=== PATIENT | female | born 1985 | race Caucasian/White ===

== ENCOUNTER 2017-01-26 14:18 | Emergency (ER) | payer OTHER ==
[2017-01-26 14:34] VITALS: BMI 21.2
[2017-01-26 15:10] VITALS: TEMP 98
[2017-01-26] MEDS ORDERED: Sodium Chloride 0.9% 1,000 ML IV ONE (15:17)
[2017-01-26] MEDS ORDERED: Sodium Chloride 0.9% 1,000 ML ONE (15:33)
[2017-01-26 15:45] LABS: BASO % 0.1 % (0.0-2.0); EOS % 0.2 % (0.0-4.0); HEMATOCRIT 33.2 % (34.0-47.0); LYMPH # 1.5 K/uL (1.0-4.3); LYMPH % 21.1 % (20.0-40.0); MEAN CELL VOLUME 83.1 fL (81.0-99.0); MEAN CORPUSCULAR HEMOGLOBIN 28.1 pg (27.0-31.0); MEAN CORPUSCULAR HGB CONC 33.8 g/dL (33.0-37.0); MEAN PLATELET VOLUME 8.7 fL (7.2-11.7); MONO # 0.5 K/uL (0.0-0.8); MONO % 7.4 % (0.0-10.0); NRBC % 0.1 % (0.0-2.0); RBC URINE 1 /hpf (0-3); RED CELL DISTRIBUTION WIDTH 16.3 % (11.5-14.5); URINE BACTERIA RARE (<OCC); URINE BILIRUBIN NEGATIVE (NEGATIVE); URINE BLOOD NEGATIVE (NEGATIVE); URINE COLOR Straw (YELLOW); URINE GLUCOSE (UA) NORMAL (Normal); URINE KETONE NEGATIVE (NEGATIVE); URINE LEUKOCYTE ESTERASE TRACE Leu/uL (Negative); URINE PROTEIN NEGATIVE (NEGATIVE); URINE UROBILINOGEN NORMAL mg/dL (0.2-1.0); WBC URINE 3 /hpf (0-5); WHITE BLOOD COUNT 7.1 K/uL (4.8-10.8)
[2017-01-26 15:53] LABS: CHLORIDE 100 mmol/L (98-107); POTASSIUM 3.4 mmol/L (3.6-5.2); SODIUM 134 mmol/L (132-148)
[2017-01-26 15:56] LABS: ALB/GLOB RATIO 1.2 (1.0-2.1); ALKALINE PHOSPHATASE 50 U/L (38-126); ALT/SGPT 23 U/L (9-52); AST/SGOT 20 U/L (14-36); BILIRUBIN,TOTAL 0.4 mg/dL (0.2-1.3); BLOOD UREA NITROGEN 8 mg/dL (7-17); CALCIUM 8.7 mg/dl (8.6-10.4); CARBON DIOXIDE 23 mmol/L (22-30); GFR AFRICAN-AMERICAN > 60; GLUCOSE,RANDOM 74 mg/dL (65-105); TOTAL PROTEIN 7.1 g/dL (6.3-8.3)
--- NOTE | 2017-01-26 16:43 | C.PDOC ---
History Of Present Illness 31 year old female, currently 9 weeks , presents to the ED with complaints of falling from standing and sustaining a contusion to her left buttock and left shoulder. Patient states she felt dizzy before falling and notes that resolved. Denies LOC, head injury, back pain, or any other complaints at this time. Time Seen by Provider: 01/26/17 15:13 Chief Complaint (Nursing): Dizziness/Lightheaded History Per: Patient History/Exam Limitations: no limitations Onset/Duration Of Symptoms: Hrs Current Symptoms Are (Timing): Still Present Activity At Onset Of Symptoms: Standing Seizure Or Post-ictal Symptoms: None Fall Associated With With Symptoms: Yes Severity: Mild Past Medical History Reviewed: Historical Data, Nursing Documentation, Vital Signs Vital Signs: Last Vital Signs Temp 98 F 01/26/17 15:06 Pulse 74 01/26/17 16:58 Resp 16 01/26/17 16:58 BP 113/78 01/26/17 16:58 Pulse Ox 98 01/26/17 16:58 - Medical History PMH: No Chronic Diseases Family History: States: Unknown Family Hx - Social History Hx Tobacco Use: No Hx Alcohol Use: No Hx Substance Use: No - Immunization History Hx Tetanus Toxoid Vaccination: No Hx Influenza Vaccination: No Hx Pneumococcal Vaccination: No Review Of Systems Except As Marked, All Systems Reviewed And Found Negative. Constitutional: Negative for: Fever, Chills Gastrointestinal: Negative for: Nausea, Vomiting, Abdominal Pain Musculoskeletal: Positive for: Shoulder Pain (+Left shoulder pain), Other (+ Left buttock pain) Neurological: Negative for: Weakness, Numbness, Dizziness Physical Exam - Physical Exam Appears: Non-toxic, No Acute Distress Skin: Normal Color, Warm, Dry Head: Atraumatic, Normacephalic Eye(s): bilateral: Normal Inspection Oral Mucosa: Moist Neck: Supple Chest: Symmetrical, No Deformity Cardiovascular: Rhythm Regular, No Murmur Respiratory: Normal Breath Sounds, No Accessory Muscle Use Gastrointestinal/Abdominal: Soft, No Tenderness Back: No Other (No tenderness or swelling to the left buttock) Extremity: Normal ROM, No Tenderness, No Deformity, No Swelling Pulses: Left Radial: Normal, Right Radial: Normal Neurological/Psych: Oriented x3, Normal Speech, Normal Cognition ED Course And Treatment - Laboratory Results Result Diagrams: 01/26/17 15:36 01/26/17 15:36 Lab Interpretation: Normal Urine POC: Positive O2 Sat by Pulse Oximetry: 99 (Room air) Pulse Ox Interpretation: Normal Progress Note: tylenol and IVFs. normal labs, no sig abn to explain dizziness. Medical Decision Making Medical Decision Making: accidental benign fall from standing to L buttock, Exam with Rn Ann normal labs. defer pelvic US in benign fall for early (9 wks) Disposition Doctor Will See Patient In The: Office Counseled Patient/Family Regarding: Studies Performed, Diagnosis - Disposition Referrals: Cherise Grajeda MD [Medical Doctor] - Disposition: HOME/ ROUTINE Disposition Time: 16:43 Condition: GOOD Additional Instructions: ice packs 1/2 hour per hour, nothing hot. Tylenol 1000 mg every 6 hours as needed Follow-up with your PMD as needed. Instructions: (ED), Costochondritis (ED) - Clinical Impression Clinical Impression: Fall from standing, - Scribe Statement The provider has reviewed the documentation as recorded by the Scribe Tereza Edmonds. Provider Attestation: All medical record entries made by the Scribe were at my direction and personally dictated by me. I have reviewed the chart and agree that the record accurately reflects my personal performance of the history, physical exam, medical decision making, and the department course for this patient. I have also personally directed, reviewed, and agree with the discharge instructions and disposition.
[2017-01-26 16:59] VITALS: BP 113/78; PULSE 74; RESP 16
[2017-01-26 17:44] VITALS: O2SAT 99
== END 2017-01-26 16:58 | disposition home or self-care (01) ==
LOC: C.ER 14:18
DX: O9A.211 Injury, poisoning and certain other consequences of external causes complicating pregnancy, first trimester (principal); M25.512 Pain in left shoulder; M25.552 Pain in left hip; W18.39XA Other fall on same level, initial encounter; Y92.9 Unspecified place or not applicable; Z3A.09 9 weeks gestation of pregnancy
CPT/HCPCS: 80053; 81001; 84702; 84703; 85025; 96360; 99285; J7040

== ENCOUNTER 2017-02-13 16:38 | Emergency (ER) | payer OTHER ==
[2017-02-13 16:39] VITALS: BMI 21.2
[2017-02-13] MEDS ORDERED: Sodium Chloride 0.9% 1,000 ML IV ONE (17:08)
--- NOTE | 2017-02-13 17:25 | C.PDOC ---
History Of Present Illness 31 y/o female presents to the ED with complains of dysuria, slight hematuria x4 days. Pt is , 11 weeks gestation. Pt denies fever, chills, abdominal pain, nausea, vomiting or any other complaints. Time Seen by Provider: 02/13/17 17:08 Chief Complaint (Nursing): Female Genitourinary History Per: Patient History/Exam Limitations: no limitations Onset/Duration Of Symptoms: Days Current Symptoms Are (Timing): Still Present Severity: Mild Associated Symptoms: Urinary Symptoms. denies: Fever, Chills, Nausea, Vomiting , Diarrhea Alleviating Factors: None Recent travel outside of the [place]: No Abnormal Vaginal Bleeding: No Past Medical History Reviewed: Historical Data, Nursing Documentation, Vital Signs Vital Signs: Last Vital Signs Temp 97.4 F L 02/13/17 16:49 Pulse 93 H 02/13/17 16:49 Resp 18 02/13/17 16:49 BP 96/63 L 02/13/17 16:49 Pulse Ox 99 02/13/17 17:27 Family History: States: Unknown Family Hx - Social History Hx Tobacco Use: No Hx Alcohol Use: No Hx Substance Use: No - Immunization History Hx Tetanus Toxoid Vaccination: No Hx Influenza Vaccination: No Hx Pneumococcal Vaccination: No Review Of Systems Except As Marked, All Systems Reviewed And Found Negative. Constitutional: Negative for: Fever, Chills Gastrointestinal: Negative for: Nausea, Vomiting, Abdominal Pain Genitourinary: Positive for: Dysuria, Hematuria. Negative for: Vaginal Bleeding Physical Exam - Physical Exam Appears: Non-toxic, No Acute Distress Skin: Warm, Dry, No Rash Head: Atraumatic, Normacephalic Chest: Symmetrical Cardiovascular: Rhythm Regular, No Murmur Respiratory: Normal Breath Sounds, No Rales, No Rhonchi, No Wheezing Gastrointestinal/Abdominal: Normal Exam, Soft, No Tenderness Back: Normal Inspection, No CVA Tenderness Extremity: Normal ROM Neurological/Psych: Oriented x3, Normal Speech ED Course And Treatment - Laboratory Results Result Diagrams: 02/13/17 18:14 02/13/17 18:14 O2 Sat by Pulse Oximetry: 99 (room air) Pulse Ox Interpretation: Normal Medical Decision Making Medical Decision Making: Plan: labs, UA, IV fluids, macrobid Patient with no elevated WBC count, no fever, no chills, no CVA tenderness, Unlikely Pyelo. Will treat with IV Rocephing and plan to d/c on PO meds. Disposition - Disposition Disposition Time: 18:54 Condition: STABLE - Clinical Impression Clinical Impression: , UTI (urinary tract infection) - Scribe Statement The provider has reviewed the documentation as recorded by the Scribe Francisco Marques Provider Attestation: All medical record entries made by the Scribe were at my direction and personally dictated by me. I have reviewed the chart and agree that the record accurately reflects my personal performance of the history, physical exam, medical decision making, and the department course for this patient. I have also personally directed, reviewed, and agree with the discharge instructions and disposition. Physician Patient Turnover Patient Signed Over To: Praveen Suazo Handoff Comments: female with UTI, pending IV ABX abd final dispo.
[2017-02-13] MEDS ORDERED: Sodium Chloride 0.9% 1,000 ML ONE (17:57)
[2017-02-13 18:21] LABS: BASO % 0.2 % (0.0-2.0); EOS % 0.5 % (0.0-4.0); HEMATOCRIT 34.1 % (34.0-47.0); LYMPH # 1.3 K/uL (1.0-4.3); LYMPH % 21.8 % (20.0-40.0); MEAN CELL VOLUME 84.5 fL (81.0-99.0); MEAN CORPUSCULAR HEMOGLOBIN 28.2 pg (27.0-31.0); MEAN CORPUSCULAR HGB CONC 33.4 g/dL (33.0-37.0); MEAN PLATELET VOLUME 9.2 fL (7.2-11.7); MONO # 0.6 K/uL (0.0-0.8); MONO % 9.3 % (0.0-10.0); NRBC % 0.1 % (0.0-2.0); RED CELL DISTRIBUTION WIDTH 17.1 % (11.5-14.5)
[2017-02-13 18:30] LABS: CHLORIDE 102 mmol/L (98-107); POTASSIUM 3.5 mmol/L (3.6-5.2); SODIUM 133 mmol/L (132-148)
[2017-02-13 18:32] LABS: ALB/GLOB RATIO 1.1 (1.0-2.1); AST/SGOT 20 U/L (14-36); BILIRUBIN,TOTAL 0.9 mg/dL (0.2-1.3); CARBON DIOXIDE 22 mmol/L (22-30); GFR AFRICAN-AMERICAN > 60
[2017-02-13 18:33] LABS: ALKALINE PHOSPHATASE 46 U/L (38-126); ALT/SGPT 24 U/L (9-52); BLOOD UREA NITROGEN 9 mg/dL (7-17); CALCIUM 8.3 mg/dl (8.6-10.4); GLUCOSE,RANDOM 83 mg/dL (65-105)
[2017-02-13 18:36] LABS: RBC URINE 42 /hpf (0-3); TRANSITIONAL EPITHIAL 7 /hpf (0-3); URINE BACTERIA MOD (<OCC); URINE BILIRUBIN NEGATIVE (NEGATIVE); URINE COLOR Yellow (YELLOW); URINE GLUCOSE (UA) NORMAL (Normal); URINE KETONE NEGATIVE (NEGATIVE); URINE PROTEIN 1+ mg/dL (NEGATIVE); URINE UROBILINOGEN NORMAL mg/dL (0.2-1.0); WBC URINE 237 /hpf (0-5)
[2017-02-13 18:37] LABS: URINE BLOOD 2+ (NEGATIVE)
[2017-02-13 18:38] LABS: URINE LEUKOCYTE ESTERASE 3+ Leu/uL (Negative)
[2017-02-13] MEDS ORDERED: cefTRIAXone IV 1 gm in Dextros 50 ML IVPB ONE ×2 (18:52→19:22)
[2017-02-13 19:30] VITALS: BP 97/54; PULSE 81; RESP 20; TEMP 97.8; O2SAT 100
== END 2017-02-13 20:02 | disposition home or self-care (01) ==
LOC: C.ER 16:38
DX: O23.41 Unspecified infection of urinary tract in pregnancy, first trimester (principal); Z3A.11 11 weeks gestation of pregnancy
CPT/HCPCS: 80053; 81001; 84702; 84703; 85025; 86850; 86900; 87086; 87181; 96365; 99285; J0696; J7040